=== PATIENT | female | born 1965 | race Caucasian/White ===

== ENCOUNTER 2019-09-27 08:21 | Outpatient (CLI) | payer OTHER, SELFPAY ==
--- NOTE | ~2019-09-27 | XR_ITS ---
EXAMINATION: XR barium swallow EXAM DATE: 09/27/2019 08:56 INDICATION: Dysphagia, sore throat, symptoms 2 months. TECHNIQUE: Standard thick followed by thin contrast barium esophagram examination was performed. The DAP for this procedure was 1.1 Gycm2. There is no prior study for comparison. FINDINGS: The pharynx is symmetric and without evidence of mass lesion or mucosal irregularity. Ther e is no esophageal stricture or mass identified. There are no esophageal diverticula. Gastroesophag eal junction is normal in appearance. IMPRESSION: Normal exam. Reviewed, dictated and finalized at location A. PLACER IMPRESSION: Normal exam.
== END 2019-09-27 08:22 | disposition home or self-care (01) ==
LOC: ANHIMG 08:22
PROVIDERS: PCP Emergency Medicine; Visit Provider Otolaryngology
DX: R13.10 Dysphagia, unspecified (principal)
CPT/HCPCS: 74220

== ENCOUNTER 2020-03-27 11:58 | Outpatient (CLI) | payer OTHER, SELFPAY ==
--- NOTE | ~2020-03-27 | XR_ITS ---
EXAMINATION: XR chest 2V DATE: 03/27/2020 12:22 INDICATION: Bronchitis. TECHNIQUE: Frontal and lateral views of the chest were obtained. COMPARISON: Chest 2 views 11/07/2005 FINDINGS: The chest demonstrates clear lungs without pneumonia, pleural effusion, or pneumothorax. Th e heart size is normal. IMPRESSION: 1. No acute cardiopulmonary disease. Reviewed, dictated and finalized at location A.
== END 2020-03-27 11:59 | disposition home or self-care (01) ==
LOC: ANHIMG 12:05
PROVIDERS: PCP Emergency Medicine; Visit Provider Emergency Medicine
DX: F17.200 Nicotine dependence, unspecified, uncomplicated (principal)
CPT/HCPCS: 71046

== ENCOUNTER → 2020-06-05 15:54 | Outpatient (CLI) | payer OTHER, SELFPAY ==
--- NOTE | ~2020-06-05 | XR_ITS ---
XR lumbar spine 2-3V 06/05/2020 16:13 Indication: Low back pain Procedure: 3 views lumbar spine Comparison: No prior studies for comparison. Findings: There are facet degenerative changes at L4-5 and L5-S1. There is grade 1 degenerative spond ylolisthesis at L4-5. There is mild disc narrowing at L4-5 and L5-S1. No acute fracture or traumatic malalignment. Pedicles intact. Sacral foramen are symmetric. Impression: 1: Moderate lumbar spondylosis. Reviewed, dictated and finalized at location A. Impression: 1: Moderate lumbar spondylosis.
== END ==
PROVIDERS: PCP Emergency Medicine; Visit Provider Emergency Medicine
DX: M47.896 Other spondylosis, lumbar region (principal)
CPT/HCPCS: 72100

== ENCOUNTER 2020-10-02 15:14 | Outpatient (CLI) | payer OTHER, SELFPAY ==
--- NOTE | ~2020-10-02 | XR_ITS ---
EXAMINATION: XR hip LT min 2V DATE: 10/02/2020 15:41 INDICATION: Left hip pain. TECHNIQUE: 3 views of left hip were obtained. COMPARISON: None. FINDINGS: Bone alignment is normal. No fracture. Left hip joint space is normal. IMPRESSION: 1. Normal left hip. Reviewed, dictated and finalized at location A. TOW OPERATOR IMPRESSION: 1. Normal left hip.
--- NOTE | ~2020-10-02 | XR_ITS ---
EXAMINATION: XR hip RT min 2V DATE: 10/02/2020 15:41 INDICATION: Right hip pain. TECHNIQUE: 3 views of right hip were obtained. COMPARISON: None. FINDINGS: Bone alignment is normal. No fracture. There is mild right hip osteoarthritis characterized by tiny marginal osteophytes. IMPRESSION: 1. Mild right hip osteoarthritis. Reviewed, dictated and finalized at location A. ICS TECHNICIAN
== END 2020-10-02 15:15 | disposition home or self-care (01) ==
PROVIDERS: PCP Emergency Medicine; Visit Provider Emergency Medicine
DX: M16.11 Unilateral primary osteoarthritis, right hip (principal); M25.552 Pain in left hip
CPT/HCPCS: 73502

== ENCOUNTER 2020-10-26 14:24 | Outpatient (CLI) | payer OTHER, SELFPAY ==
--- NOTE | ~2020-10-26 | XR_ITS ---
XR cervical spine 4-5V DATE: 10/26/2020 14:45 INDICATION: Bilateral hand paresthesia, left-sided numbness TECHNIQUE: AP, open-mouth, lateral, swimmer views COMPARISON: None FINDINGS: There is straightening of the cervical spine which may be secondary to muscle spasm. C1 and C2 are normally aligned and the odontoid process is intact. No fracture or dislocation or locked facet or prevertebral soft tissue swelling. There is moderate loss of interspace height and mild spurring at C4-5 and C5-6 consistent with degene rative disc disease. There is uncovertebral joint spurring at C4-5 and C5-6, more prominent on the right. IMPRESSION: Moderate degenerative disc disease at C4-5 and C5-C6 Bilateral uncovertebral joint spurring at C4-5 and C5-6, with associated bilateral encroachment of C5 and C6 neural foramina Reviewed, dictated and finalized at location A. IMPRESSION: Moderate degenerative disc disease at C4-5 and C5-C6 Bilateral uncovertebral joint spurring at C4-5 and C5-6, with associated bilate ral encroachment of C5 and C6 neural foramina
== END 2020-10-26 14:25 | disposition home or self-care (01) ==
LOC: ANHIMG 14:29
PROVIDERS: PCP Emergency Medicine; Visit Provider Emergency Medicine
DX: R20.2 Paresthesia of skin (principal); M50.321 Other cervical disc degeneration at C4-C5 level; M50.322 Other cervical disc degeneration at C5-C6 level
CPT/HCPCS: 72050

== ENCOUNTER 2021-02-06 09:44 | Outpatient (CLI) | payer OTHER, SELFPAY ==
--- NOTE | 2021-02-06 11:30 | NEURO_ITS ---
Impression: # Complains of numbness of upper and lower extremities. # Normal nerve conduction study of upper and lower extremities. # No evidence of Carpal Tunnel Syndrome or Tarsal Tunnel Syndrome. # Normal needle/EMG exam; no evidence of myotonia, denervation or myopathic patterns. # Clinical correlation recommended. Nerve Conduction Studies Anti Sensory Summary Table Stim Site NR Peak (ms) P-T Amp (?V) Site1 Site2 Delta-P (ms) Dist (cm) Radames (m/s) Left Median Anti Sensory (2-3nd Digit) Wrist 3.3 18.3 Wrist 2-3nd Digit 3.3 14.0 42 Wrist 3.6 36.8 Wrist 2-3nd Digit 3.3 14.0 42 Right Median Anti Sensory (2-3nd Digit) Wrist 3.2 71.8 Wrist 2-3nd Digit 3.2 14.0 44 Wrist 3.4 25.4 Wrist 2-3nd Digit 3.2 14.0 44 Left Radial Anti Sensory (Base 1st Digit) Wrist 2.0 18.1 Wrist Base 1st Digit 2.0 0.0 Right Radial Anti Sensory (Base 1st Digit) Wrist 2.2 21.9 Wrist Base 1st Digit 2.2 0.0 Left Sup Fibular Anti Sensory (Ant Lat Mall) 14 cm 3.8 5.3 14 cm Ant Lat Mall 3.8 16.0 42 Right Sup Fibular Anti Sensory (Ant Lat Mall) 14 cm 3.3 20.4 14 cm Ant Lat Mall 3.3 16.0 48 Left Sural Anti Sensory (Lat Mall) Calf 4.0 8.7 Calf Lat Mall 4.0 16.0 40 Right Sural Anti Sensory (Lat Mall) Calf 3.9 6.6 Calf Lat Mall 3.9 16.0 41 Left Ulnar Anti Sensory (5th Digit) Wrist 2.9 25.5 Wrist 5th Digit 2.9 14.0 48 Right Ulnar Anti Sensory (5th Digit) Wrist 3.0 41.6 Wrist 5th Digit 3.0 14.0 47 Motor Summary Table Stim Site NR Onset (ms) O-P Amp (mV) Site1 Site2 Delta-0 (ms) Dist (cm) Radames (m/s) Left Lateral Plantar Motor (ADM) Med Mall 5.0 1.8 Right Lateral Plantar Motor (ADM) Med Mall 5.2 0.6 Left Median Motor (Abd Poll Brev) Wrist 3.0 6.4 Elbow Wrist 5.5 31.0 56 Elbow 8.5 3.9 Right Median Motor (Abd Poll Brev) Wrist 3.1 6.0 Elbow Wrist 5.3 29.0 55 Elbow 8.4 3.2 Left Peroneal Motor (Vastus Med) Ankle 4.8 1.1 Popit Ankle 8.7 44.0 51 Popit 13.5 1.3 Right Peroneal Motor (Vastus Med) Ankle 4.8 1.4 Popit Ankle 8.6 39.0 45 Popit 13.4 1.1 Left Tibial Motor (Abd Alejo Brev) Ankle 5.0 5.2 Knee Ankle 10.5 45.0 43 Knee 15.5 3.3 Right Tibial Motor (Abd Alejo Brev) Ankle 4.7 5.6 Knee Ankle 10.5 44.0 42 Knee 15.2 2.9 Left Ulnar Motor (Abd Dig Minimi) Wrist 2.6 5.3 A Elbow Wrist 5.5 31.0 56 A Elbow 8.1 4.6 Right Ulnar Motor (Abd Dig Minimi) Wrist 2.9 3.6 A Elbow Wrist 5.5 31.0 56 A Elbow 8.4 3.2 F Wave Studies NR F-Lat (ms) L-R F-Lat (ms) Left Median (Mrkrs) (Abd Poll Brev) 28.78 0.44 Right Median (Mrkrs) (Abd Poll Brev) 29.22 0.44 Left Peroneal (Mrkrs) (EDB) 54.31 0.39 Right Peroneal (Mrkrs) (EDB) 54.70 0.39 Left Tibial (Mrkrs) (Abd Hallucis) 54.19 0.48 Right Tibial (Mrkrs) (Abd Hallucis) 54.67 0.48 Left Ulnar (Mrkrs) (Abd Dig Min) 29.03 0.82 Right Ulnar (Mrkrs) (Abd Dig Min) 29.85 0.82 EMG Side Muscle Nerve Root Ins Act Fibs Amp Dur Recrt Comment Right 1stDorInt Ulnar C8-T1 Nml Nml Nml Nml Nml Right Ext Indicis Radial (Post Int) C7-8 Nml Nml Nml Nml Nml Right Ext Digitorum Radial (Post Int) C7-8 Nml Nml Nml Nml
== END 2021-02-06 09:45 | disposition home or self-care (01) ==
PROVIDERS: PCP Emergency Medicine; Visit Provider Emergency Medicine
DX: R20.2 Paresthesia of skin (principal); R20.0 Anesthesia of skin
CPT/HCPCS: 95886; 95913

== ENCOUNTER 2021-03-07 10:06 | Outpatient (CLI) | payer OTHER, SELFPAY ==
--- NOTE | ~2021-03-07 | US_ITS ---
EXAMINATION: US right upper quadrant EXAM DATE: 03/07/2021 11:07 INDICATION: Right upper quadrant pain, elevated liver function tests. TECHNIQUE: Multiple grayscale and Doppler images of the abdomen right upper quadrant were obtained (b y a technologist who performed the scan) and subsequently reviewed. Comparison is made to prior exami nation from 09/08/2018. FINDINGS: The pancreatic head and body are normal in appearance. The pancreatic tail is not visualized. The l iver has normal echogenicity and contour. There are no focal liver lesions identified. There is no evidence of intrahepatic biliary duct dilation. Portal venous flow was seen in the hepatopedal, nor mal direction and has normal Doppler waveform. No right-sided hydronephrosis. Common bile duct measures 4 mm, which is normal. The gallbladder wall is normal in thickness, with ex pected amount of distention. No sonographic evidence of pericholecystic fluid. There is no cholelit hiases. Technologist performing exam reports patient did not demonstrate sonographic Dunbar's sign. Please note that this sign is less reliable in patients who have received pain medication. IMPRESSION: Unremarkable abdominal ultrasound exam. Reviewed, dictated and finalized at location B.
== END 2021-03-07 10:07 | disposition home or self-care (01) ==
PROVIDERS: PCP Emergency Medicine; Visit Provider Internal Medicine Gastroenterology
DX: R10.11 Right upper quadrant pain (principal)
CPT/HCPCS: 76705

== ENCOUNTER 2021-07-01 10:33 | Emergency (ER) | payer OTHER, SELFPAY ==
--- NOTE | ~2021-07-01 | CT_ITS ---
EXAMINATION: CT abdomen pelvis w con EXAM DATE: 07/01/2021 12:46 INDICATION: Right-sided abdominal pain. TECHNIQUE: Spiral CT of the abdomen and pelvis was performed following intravenous injection of 100 m L Omnipaque 350. Axial, coronal and sagittal images of the abdomen and pelvis were reviewed. The do se-length product (DLP) for this examination was 536.30 mGy-cm. The exposure was tailored according to patient size (auto mA exposure control), and iterative reconstruction (ASIR) was used as additiona l dose reduction technique. There is no prior study for comparison. FINDINGS: The liver, spleen, adrenal glands and pancreas are unremarkable. Gallbladder is unremarka ble. No biliary obstruction. Portal and splenic veins are patent. Kidneys enhance symmetrically. There is no hydronephrosis. The uterus is unremarkable. The bladder is unremarkable. There is no retroperitoneal or pelvic lymphadenopathy. The appendix is normal. The stomach and small bowel are unremarkable. There is expected amount of c olonic stool. No free intraperitoneal gas. The heart is normal in size. There are no pericardial or pleural effusions. Bibasilar linear atelectasis. There are no osteoblastic or osteolytic lesion s identified. IMPRESSION: 1. No acute intra-abdominal findings. Reviewed, dictated and finalized at location A. RAL STERILE TECHNICIAN
[2021-07-01 10:38] VITALS: BP 113/77; PULSE 86; RESP 18; TEMP 36.4; O2SAT 100
[2021-07-01 11:00] LABS: Basophils Percent Auto 0.7 % (0.2-1.2); Hematocrit 45.3 % (37.0-47.0); Hemoglobin 15.1 g/dL (12.0-15.0); Lymphocytes Absolute Auto 0.94 K/mm3 (0.9-3.2); Lymphocytes Percent Auto 31.6 % (18.3-44.2); Mean Corpuscular HGB Conc 33.3 g/dl (32-36); Mean Corpuscular Hemoglobin 30.8 pg (26-34); Mean Corpuscular Volume 92.4 fl (80-100); Mean Platelet Volume 9.7 fl (7.4-10.4); Monocytes Absolute Auto 0.5 K/mm3 (0.1-0.6); Monocytes Percent Auto 15.8 % (2.6-8.5); Neutrophils Absolute Auto 1.5 K/mm3 (1.3-6.7); Neutrophils Percent Auto 51.9 % (45.5-73.1); Platelet Count Result 187 k/mm3 (150-375); Red Cell Distribution Width 12.6 % (11.5-14.5)
[2021-07-01 11:11] LABS: Alanine Aminotransferase 17 U/L (4-35); Albumin Level 4.9 g/dL (3.5-5.1); Alkaline Phosphatase 53 U/L (38-126); Anion Gap 8 mmol/L (8-16); Aspartate Amino Transferase 28 U/L (14-36); Bilirubin,Total 0.7 mg/dL (0.2-1.3); Blood Urea Nitrogen 8 mg/dL (7-17); Calcium 9.6 mg/dL (8.4-10.2); Carbon Dioxide 24 mmol/L (22-30); Chloride 103 mmol/L (98-107); Estimated CRCL calculation 78 ml/min; Estimated Glomerular Filt Rate > 60; Glucose 84 mg/dL (65-110); Lipase 58 U/L (23-300); Potassium 3.8 mmol/L (3.4-5.0); Sodium 135 mmol/L (137-145)
[2021-07-01 12:29] LABS: Add Urine Microscopic? YES; Appearance Urine Cloudy (Clear); Bilirubin Urine Negative (Negative); Blood Urine Negative (Negative); Color Urine Yellow (Yellow); Glucose Urine UA Negative (Negative); Ketones Urine Trace mg/dL (Negative); Leukocyte Esterase Ur Negative LEU/UL (Negative); Mucus Urine Rare /lpf; Nitrate Urine Negative (Negative); Protein Urine Negative (Negative); Specific Grav Ur 1.012 (1.001-1.035); Squamous Epithelial Cell Urine Occasional /hpf (Few); Urobilinogen Urine Negative mg/dL (<2.0); WBC Urine 0-3 /hpf
[2021-07-01] MEDS: SODIUM CHLORIDE 0.9% IV 1,000 ML 999 ML IV CONT ×2 (12:33→14:10)
--- NOTE | 2021-07-01 13:07 | ED.ABDPAIN ---
HPI - Abdominal Pain General Chief Complaint: Abdominal Pain Stated Complaint: abd pain Time Seen by Provider: 07/01/21 11:52 Source: patient, RN notes reviewed and old records reviewed Mode of arrival: ambulatory Limitations: no limitations History of Present Illness HPI narrative: Patient presents with sudden onset of coughing, feeling cold, general body aches, started 3 days ago, 1 day later started having massive diarrhea with abdominal pain. Patient have seen her family physician today who ordered the Covid test, waiting for the result tomorrow. 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 Related Data Home Medications Medication Instructions Recorded Confirmed buspirone mg 07/01/21 Allergies Allergy/AdvReac Type Severity Reaction Status Date / Time codeine Allergy Mild Unknown Verified 07/01/21 11:49 Review of Systems Review of Systems: CONSTITUTIONAL: Chills, and cold feeling EYES: Denies visual changes, redness, or discharge. ENT: Denies rhinorrhea, congestion, sore throat, or otalgia. CARDIOVASCULAR: Denies chest pain, palpitations, or edema. RESPIRATORY: Denies cough or dyspnea. GASTROINTESTINAL: Complaining of abdominal pain GENITOURINARY: Denies dysuria or hematuria. SKIN: Denies rash or itching. MUSCULOSKELETAL: General body aches NEUROLOGIC: Denies headache, numbness, or weakness. PSYCHIATRIC: Denies anxiety or depression. Exam Narrative: General appearance: Well-developed, well-nourished Skin: Normal color Head: Normocephalic, nontraumatic Eyes: Clear conjunctiva ENT: Oropharynx normal, ears normal, nose normal Neck: Supple, nontender Chest and respiratory: Airway patent, no respiratory distress, no accessory muscle use Heart: Regular rate/rhythm Abdomen: Soft, nontender, no organomegaly, quiet bowel sounds Vascular: Normal peripheral pulses, normal capillary refill. Musculoskeletal: Normal range of motion, nontender back Neurologic: Alert and oriented ?3, FISHING GUIDE is normal as tested, no gross motor deficit Course Course Emergency Course: Stable, improving Vital Signs Vital signs: Vital Signs Temperature 36.4 C L 07/01/21 10:38 Pulse Rate 86 07/01/21 10:38 Respiratory Rate 18 07/01/21 10:38 Blood Pressure 113/77 07/01/21 10:38 Pulse Oximetry 100 07/01/21 10:38 Temperature 36.4 C L 07/01/21 10:38 Pulse Rate 86 07/01/21 10:38 Respiratory Rate 18 07/01/21 10:38 Blood Pressure 113/77 07/01/21 10:38 Pulse Oximetry 100 07/01/21 10:38 MDM - Abdominal Pain MDM Narrative Medical decision making narrative: Viral syndrome is my concern Lab Data Result diagrams: 07/01/21 10:50 07/01/21 10:50 Labs: Lab Results 07/01/21 07/01/21 07/01/21 Range/Units 10:50 10:50 11:44 WBC 3.0 L (4.5-10.0) K/mm3 RBC 4.90 (4.2-5.4) M/mm3 Hgb 15.1 H (12.0-15.0) g/dL Hct 45.3 (37.0-47.0) % MCV 92.4 (80-100) fl MCH 30.8 (26-34) pg MCHC 33.3 (32-36) g/dl RDW 12.6 (11.5-14.5) % Plt Count 187 (150-375) k/mm3 MPV 9.7 (7.4-10.4) fl Immature Gran % (Auto) 0.0 (0-0.5) % Neut % (Auto) 51.9 (45.5-73.1) % Lymph % (Auto) 31.6 (18.3-44.2) % [place] % (Auto) 15.8 H (2.6-8.5) % Eos % (Auto) 0.0 (0-4.4) % Baso % (Auto) 0.7 (0.2-1.2) % Lymph # (Auto) 0.94 (0.9-3.2) K/mm3 [place] # (Auto) 0.5 (0.1-0.6) K/mm3 Eos # (Auto) 0.0 (0-0.3) K/mm3 Baso # (Auto) 0.0 (0.0-0.1) K/mm3 Abs Immat Gran (auto) 0.00 (0.00-0.031) K/mm3 Absolute Neuts (auto) 1.5 (1.3-6.7) K/mm3 Absolute Nucleated RBC 0.0 (0.0-0.012) K/mm3 Nucleated RBC % 0.0 (0.0-0.2) % Sodium
[2021-07-01 14:10] VITALS: BP 113/75; PULSE 77; RESP 18; O2SAT 100
== END 2021-07-01 15:14 | disposition home or self-care (01) ==
PROVIDERS: Emergency Medicine; Emergency Provider Emergency Medicine; PCP Emergency Medicine
DX: B34.9 Viral infection, unspecified (principal)
CPT/HCPCS: 36415; 74177; 80053; 81001; 81025; 83690; 85025; 87804; 96360; 96361; 99284; J7030; Q9967

== ENCOUNTER → 2021-07-15 09:38 | Outpatient (CLI) | payer OTHER, SELFPAY ==
[2021-07-15 19:12] LABS: SARS-CoV-2 RNA PCR Positive
== END ==
PROVIDERS: PCP Emergency Medicine; Visit Provider Emergency Medicine
DX: U07.1 COVID-19 (principal)
CPT/HCPCS: C9803; U0003; U0005

== ENCOUNTER → 2021-07-22 08:44 | Outpatient (CLI) | payer OTHER, SELFPAY ==
[2021-07-22 19:24] LABS: SARS-CoV-2 RNA PCR Negative
== END ==
PROVIDERS: PCP Emergency Medicine; Visit Provider Emergency Medicine
DX: Z20.822 Contact with and (suspected) exposure to COVID-19 (principal)
CPT/HCPCS: C9803; U0003; U0005

== ENCOUNTER → 2022-04-11 02:18 | Outpatient (CLI) | payer OTHER, SELFPAY ==
[2022-04-11 11:31] LABS: SARS-CoV-2 RNA PCR Negative
== END ==
PROVIDERS: PCP Emergency Medicine; Visit Provider Emergency Medicine
DX: R68.89 Other general symptoms and signs (principal); Z20.822 Contact with and (suspected) exposure to COVID-19
CPT/HCPCS: C9803; U0003; U0005

== ENCOUNTER 2024-03-01 15:36 | Outpatient (CLI) | payer OTHER, SELFPAY ==
--- NOTE | ~2024-03-01 | XR_ITS ---
EXAM: XR hand LT min 3V, XR hand RT min 3V DATE: 03/01/2024 16:05 HISTORY: BI THUMB PAIN X 3 MONTHS . COMPARISON: None available. FINDINGS: Normal mineralization. No fracture or dislocation. No lytic or blastic lesion. Joint space s are maintained. No erosion or periosteal change. Soft tissues within normal limits. IMPRESSION: Normal bilateral hand radiograph findings. Reviewed, dictated and finalized at location K. IMPRESSION: Normal bilateral hand radiograph findings.
--- NOTE | ~2024-03-01 | XR_ITS ---
EXAM: XR knee RT 3V, XR knee LT 3V DATE: 03/01/2024 16:05 (accession [id number]), 03/01/2024 16:04 (accession [id number]) HISTORY: BI KNEE PAIN X 3 MOS NO INJURY . COMPARISON: None available. FINDINGS: Normal mineralization. No fracture or dislocation. No lytic or blastic lesion. Mild bilate ral medial joint space narrowing. Mild tricompartmental osteophytosis. No erosion or periosteal urena e. Soft tissues within normal limits. 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 Reviewed, dictated and finalized at location K. IMPRESSION: Mild tricompartmental osteoarthritis of the right and left knees, m ost pronounced in the medial compartments.
== END 2024-03-01 15:37 | disposition home or self-care (01) ==
LOC: ANHIMG 15:40
PROVIDERS: PCP Emergency Medicine; Visit Provider Emergency Medicine
DX: M79.641 Pain in right hand (principal); M79.642 Pain in left hand; M17.0 Bilateral primary osteoarthritis of knee
CPT/HCPCS: 73130; 73562